=== PATIENT | female | born 1985 | race African-American/Black ===

== ENCOUNTER 2017-02-20 06:55 | Emergency (ER) | payer BC | END 2017-02-20 07:15 | disposition left against medical advice (07) | LOC: ERS 06:55 | DX: Z53.21 Procedure and treatment not carried out due to patient leaving prior to being seen by health care provider (principal) ==

== ENCOUNTER 2018-10-30 18:29 | Emergency (ER) | payer BC | END 2018-10-30 18:43 | disposition left against medical advice (07) | LOC: ERS 18:29 | DX: Z53.21 Procedure and treatment not carried out due to patient leaving prior to being seen by health care provider (principal) ==